=== PATIENT | female | born 1960 | race Hispanic/Latino ===

== ENCOUNTER → 2019-07-09 | Outpatient (CLI) | payer OTHER | END | disposition home or self-care (01) | LOC: RAH 14:37 | PROVIDERS: ATTEND Family Medicine | DX: Z12.31 Encounter for screening mammogram for malignant neoplasm of breast (principal) | CPT/HCPCS: 77067 ==

== ENCOUNTER → 2020-07-11 | Outpatient (CLI) | payer OTHER | END | disposition home or self-care (01) | LOC: RAH 11:45 | PROVIDERS: ATTEND Family Medicine | DX: Z12.31 Encounter for screening mammogram for malignant neoplasm of breast (principal) | CPT/HCPCS: 77067 ==

== ENCOUNTER → 2021-07-06 | Outpatient (CLI) | payer OTHER | END | disposition home or self-care (01) | LOC: RAH 14:20 | PROVIDERS: ATTEND Family Medicine | DX: Z12.31 Encounter for screening mammogram for malignant neoplasm of breast (principal) | CPT/HCPCS: 77067 ==

== ENCOUNTER → 2022-07-07 | Outpatient (CLI) | payer OTHER | END | disposition home or self-care (01) | LOC: RAH 09:00 | PROVIDERS: ATTEND Family Medicine | DX: Z12.31 Encounter for screening mammogram for malignant neoplasm of breast (principal) | CPT/HCPCS: 77067 ==

== ENCOUNTER → 2025-06-18 | Outpatient (CLI) | payer OTHER ==
--- NOTE | 2025-06-21 15:58 | HMCIMG ---
BILATERAL BREAST ULTRASOUND: Both: Real-time examination of the both breasts demonstrates heterogeneous echotexture throughout both the breasts without evidence of focal solid masses. Right breast at 6:00 there is a cluster of small cyst the largest lesions measuring 0.7 x 0.2 x 0.8 cm. There are bilateral axillary lymph node on the right measuring 0.9 x 0.5 x 0.5 cm. Second lymph node on the right measures 1.9 x 0.6 x 1.1 cm. The left side there are also 2 axillary lymph node measuring 2.1 x 0.4 x 1.2 cm. The second measuring 1.8 x 0.5 x 1.6 cm. In the right chest wall at 4:00 there is a complex superficial lesion seen possibly a sebaceous cyst measuring 0.9 x 1.1 x 0.8 cm. IMPRESSION: Dense breasts. There Is no breast hypoechoic mass seen. There is a superficial sebaceous cyst seen in the right chest wall at 4:00 Benign-appearing bilateral axillary lymph nodes. FINAL ASSESSMENT: ACR: BI-RAD- 2. Benign: Also a negative assessment; finding(s) benign abnormalities. Management: Routine mammography screening. Likelihood of Cancer: Essentially 0% likelihood of malignancy.
== END | disposition home or self-care (01) ==
LOC: RAH 13:48
PROVIDERS: ATTEND Family Medicine
DX: N60.81 Other benign mammary dysplasias of right breast (principal); L72.3 Sebaceous cyst; R92.333 Mammographic heterogeneous density, bilateral breasts; R92.8 Other abnormal and inconclusive findings on diagnostic imaging of breast